=== PATIENT | female | born 1990 | race Asian ===

== ENCOUNTER 2017-07-11 10:37 | Inpatient (IN) | payer OTHER ==
[2017-07-11] VITALS (55 sets, daily range): BP systolic 105–178; BP diastolic 56–93; PULSE 75–135; TEMP 97.6–99.1
[~2017-07-11] VITALS: Ht 163 cm; Wt 75.9 kg
[2017-07-11] MEDS ORDERED: SYNTHROID0.05 MG/TA PO (10:56)
[2017-07-11 11:21] LABS: COLLECTION METHOD CLEAN CATCH
[2017-07-11 11:50] LABS: BASO % 0.2 % (0.0-2.0); EOS % 0.4 % (0-4.0); GRAN # 3.9 (1.4-6.5); GRAN % 71.2 % (42.2-75.2); HEMOGLOBIN 12.4 g/dl (12.5-16.0); LYMPH # 1.2 (1.2-3.4); LYMPH % 21.8 % (20.0-51.0); MEAN CELL VOLUME 95 fl (80.0-100.0); MEAN CORPUSCULAR HEMOGLOBIN 32 pg (27.0-31.0); MEAN CORPUSCULAR HGB CONC 34 g/dl (33.0-37.0); MEAN PLATELET VOLUME 10.4 fl (7.4-10.4); MONO # 0.3 (0.1-0.6); MONO % 5.5 % (1.7-9.3); PLATELET COUNT 189 K/mm3 (130-400); REDCELL DISTRIBUTION WIDTH-CV 12.9 % (11.5-14.5)
[2017-07-11 11:55] LABS: ALBUMIN 4.1 gm/dL (3.5-5.0); BILIRUBIN,TOTAL 0.3 mg/dL (0.0-1.0); CALCIUM 9.2 mg/dL (8.4-10.2); CREATININE, serum 0.45 mg/dL (0.52-1.25); POTASSIUM 3.6 mmol/L (3.4-5.0); TOTAL PROTEIN 7.4 gm/dL (6.4-8.2)
[2017-07-11 11:57] LABS: HEMATOCRIT 36.9 % (37.0-47.0)
[2017-07-11 11:59] LABS: PH 6 (5-8); URINE APPEARANCE Clear; URINE BILIRUBIN Negative (NEGATIVE); URINE COLOR Yellow; URINE GLUCOSE Negative (NEGATIVE); URINE KETONE Negative (NEGATIVE); URINE LEUKOCYTE ESTERASE Trace (NEGATIVE); URINE NITRATE Negative (NEGATIVE); URINE PROTEIN(semi-quant) Negative (NEGATIVE); URINE UROBILINOGEN Negative (NEGATIVE)
[2017-07-11 12:00] LABS: SQUAMOUS EPITHELIAL 0-2 /hpf; URINE BACTERIA None Seen /hpf; URINE BLOOD Negative (NEGATIVE); URINE RBC 0-2 /hpf; URINE WBC 0-2 /hpf
[2017-07-11 12:24] LABS: THYROID STIMULATING HORMONE 0.651 uIU/mL (0.465-4.680)
[2017-07-12] VITALS (51 sets, daily range): BP systolic 101–162; BP diastolic 51–83; PULSE 78–113; TEMP 97.9–99.1
[2017-07-13 03:30] VITALS: BP 125/74; PULSE 93; TEMP 97.6
[2017-07-13 06:45] VITALS: BP 122/73; PULSE 85; TEMP 97.4
[2017-07-13 07:19] LABS: HEMATOCRIT 33.7 % (37.0-47.0); HEMOGLOBIN 11.3 g/dl (12.5-16.0)
== END 2017-07-13 14:45 | disposition home or self-care (01) | DRG 775 ==
LOC: LDRO 10:37 → OB 12:55 → LDR 12:55 → OB 07-12 13:55
PROVIDERS: Obstetrics & Gynecology
PROC: 10E0XZZ Delivery of Products of Conception, External Approach (ICD-10-PCS; principal; 2017-07-12)
PROC: 3E033VJ Introduction of Other Hormone into Peripheral Vein, Percutaneous Approach (ICD-10-PCS; 2017-07-12)
DX: O24.420 Gestational diabetes mellitus in childbirth, diet controlled (principal); O69.81X0 Labor and delivery complicated by cord around neck, without compression, not applicable or unspecified; O70.1 Second degree perineal laceration during delivery; O99.284 Endocrine, nutritional and metabolic diseases complicating childbirth; E03.9 Hypothyroidism, unspecified; Z3A.38 38 weeks gestation of pregnancy; Z37.0 Single live birth
CPT/HCPCS: J2590; J7120